=== PATIENT | male | born 1970 | race Caucasian/White ===

== ENCOUNTER 2022-07-10 09:02 | Outpatient (CLI) | payer BC, OTHER, SELFPAY ==
[2022-07-10 18:40] LABS: Basophils Percent Auto 0.6 % (0.2-1.2); Eosinophils Absolute Auto 0.1 K/mm3 (0-0.3); Hematocrit 46.1 % (42.0-52.0); Hemoglobin 15.4 g/dL (14.0-18.0); Immature Granulocyte Absolute 0.03 K/mm3 (0.00-0.031); Immature Granulocyte Percent A 0.6 % (0-0.5); Lymphocytes Absolute Auto 1.42 K/mm3 (0.9-3.2); Lymphocytes Percent Auto 26.3 % (18.3-44.2); Mean Corpuscular HGB Conc 33.4 g/dl (32-36); Mean Corpuscular Hemoglobin 29.8 pg (26-34); Mean Corpuscular Volume 89.3 fl (80-100); Monocytes Absolute Auto 0.6 K/mm3 (0.1-0.6); Monocytes Percent Auto 11.9 % (2.6-8.5); Neutrophils Absolute Auto 3.2 K/mm3 (1.3-6.7); Neutrophils Percent Auto 58.6 % (45.5-73.1); Platelet Count Result 224 k/mm3 (150-375); Red Blood Count 5.16 M/mm3 (4.6-6.20); White Blood Count 5.4 K/mm3 (4.5-10.0)
[2022-07-10 19:56] LABS: LDL Cholesterol Direct 73 mg/dL
[2022-07-10 20:00] LABS: Alanine Aminotransferase 35 U/L (6-50); Albumin Level 4.5 g/dL (3.5-5.1); Alkaline Phosphatase 76 U/L (38-126); Anion Gap 5 mmol/L (8-16); Aspartate Amino Transferase 35 U/L (17-59); Bilirubin,Total 0.8 mg/dL (0.2-1.3); Blood Urea Nitrogen 16 mg/dL (9-20); Carbon Dioxide 31 mmol/L (22-30); Chloride 103 mmol/L (98-107); Cholesterol 156 mg/dL (0-200); Estimated Glomerular Filt Rate > 60; Glucose 104 mg/dL (65-110); HDL Direct 45 mg/dL; Potassium 4.7 mmol/L (3.4-5.0); Sodium 139 mmol/L (137-145); Triglycerides 120 mg/dL (<150)
[2022-07-10 20:10] LABS: Prostate Specific Antigen 3.1 ng/mL (< OR = 4.0)
== END 2022-07-10 09:03 | disposition home or self-care (01) ==
LOC: ANHGOSHLAB 09:05
PROVIDERS: PCP Family Medicine; Visit Provider Nurse Practitioner
DX: I10 Essential (primary) hypertension (principal); E78.5 Hyperlipidemia, unspecified; Z12.5 Encounter for screening for malignant neoplasm of prostate
CPT/HCPCS: 36415; 80053; 80061; 84153; 85025; G0103

== ENCOUNTER 2022-12-04 01:33 | Day surgery (SDC) | payer BC, OTHER, SELFPAY ==
[2022-11-23 10:52] VITALS: BMI 27.9
[2022-12-04 06:21] VITALS: BMI 28.0
[2022-12-04 06:23] VITALS: BP 99/78; PULSE 76; RESP 18; TEMP 36.2; O2SAT 100
[2022-12-04] MEDS: LACTATED RINGERS 1,000 ML 150 ML IV CONT (06:30)
--- NOTE | 2022-12-04 07:20 | WPDANESEPPF ---
Anes - Initial Pre Proc Eval Procedure: Operation Date: 12/04/22 07:30 Proposed Procedures p Screening Colonoscopy - Flaquito Martinez MD Date/Time: 12/04/22 07:20 Surgeon: Flaquito Martinez MD Pre Op Diagnosis: neoplasm screening Patient Data Age: 52 Gender: M Height: 1.85 m Weight: 96.6 kg Last Vital Signs Temp 97.1 F L 12/04/22 06:23 Pulse 76 12/04/22 06:23 Resp 18 12/04/22 06:23 BP 99/78 L 12/04/22 06:23 Pulse Ox 100 12/04/22 06:23 Allergies Allergy/AdvReac Type Severity Reaction Status Date / Time No Known Drug Allergies AdvReac Unknown Unknown Verified 07/10/22 07:56 Home Medications Medication Instructions Recorded Confirmed Type acyclovir 400 mg tablet 400 mg PO TID #30 tabs 06/19/22 11/23/22 Rx losartan 25 mg tablet 25 mg PO DAILY #90 tabs 10/09/22 11/23/22 Rx rosuvastatin 10 mg tablet 10 mg PO DAILY #90 tabs 10/09/22 11/23/22 Rx Patient hx anesthesia problems: none Family hx anesthesia problems: none Results Review: All pre-operative results and documents have been reviewed as part of the pre-operative evaluation. [facility] Past Medical History Medical History H/O herpes simplex infection Hypertension Other and unspecified hyperlipidemia Surgical History Surgical History H/O arthroscopy of right knee (~1983) Family History Family History Grandparent Family history of gout Social History Social History Smoking status: Never smoker Second hand tobacco smoke exposure: No Alcohol intake: current Drinks per week: 4 Alcohol use details: socially Substance use type: does not use Lack of Transportation: No Lack of Food: Never True Current Housing: I Have Housing Concerned About Future Housing: No Difficulty Paying Gas/Electric Bills: No Difficulty Paying for Meds: No Currently Unemployed: No Education: Master's Degree or Higher Difficulty w/ Childcare or Family Care: No Living arrangements: with family Spiritual care concerns: No Anes - Eval Final PreProcedure Day of Procedure 12/04/22 07:20 Patient weight: normal Heart: regular rate and rhythm Lungs: clear to auscultation Airway: Mallampati scale class II Neurological: alert and oriented Last oral intake: >/= 8 hours ASA classification: II Emergent: no Anesthetic plan: proceed Anesthesia type and monitoring: general GIVS and standard monitoring Results Review: All pre-operative results and documents have been reviewed as part of the pre-operative evaluation. Informed Consent: The patient's anesthetic plan and its attendant risks and benefits were discussed with the patient/family/POA. Questions were solicited and answers provided to the satisfaction of the patient/family/POA.
--- NOTE | 2022-12-04 07:31 | PM.HPGS ---
History of Present Illness History of Present Illness Consent: Risks, benefits, and alternatives have been discussed and questions answered. Patient agrees to proceed with procedure. Chief complaint: neoplasm screening Narrative: Evans King is a 52 year old male here for first screening colonoscopy Review of Systems Constitutional: Constitutional: Denies headache(s) and Denies weakness Eyes: Eyes: Denies blurry vision ENT: Reports Normal hearing present, Denies headache(s) and Denies neck pain Cardiovascular: Cardiovascular: Denies chest pain and Denies dyspnea Respiratory: Respiratory: Denies dyspnea Gastrointestinal: Gastrointestinal: Reports no additional gastrointestinal complaints Genitourinary: Genitourinary: Denies dysuria Musculoskeletal: Musculoskeletal: Denies neck pain Integumentary/Breasts: Skin/Breast: Denies dry skin Neurologic: Reports Normal hearing present, Denies headache(s) and Denies weakness Psychiatric: Psychiatric: Denies anxiety Endocrine: Endocrine: Denies change in body appearance Hematologic/Lymphatic: Hematologic/Lymphatic: Denies easy bleeding Allergic/Immunologic: Allergic/Immunologic: Denies urticaria PMF Past Medical History Medical History (Updated 12/04/22 @ 07:32 by Flaquito Martinez MD) Colon cancer screening H/O herpes simplex infection Hypertension Other and unspecified hyperlipidemia Surgical History Surgical History H/O arthroscopy of right knee (~1983) Family History Family History Grandparent Family history of gout Social History Social History Smoking status: Never smoker Second hand tobacco smoke exposure: No Alcohol intake: current Drinks per week: 4 Alcohol use details: socially Substance use type: does not use Lack of Transportation: No Lack of Food: Never True Current Housing: I Have Housing Concerned About Future Housing: No Difficulty Paying Gas/Electric Bills: No Difficulty Paying for Meds: No Currently Unemployed: No Education: Master's Degree or Higher Difficulty w/ Childcare or Family Care: No Living arrangements: with family Spiritual care concerns: No Meds Home Medications and Allergies Home Medications Medication Instructions Recorded Confirmed Type acyclovir 400 mg tablet 400 mg PO TID #30 tabs 06/19/22 11/23/22 Rx losartan 25 mg tablet 25 mg PO DAILY #90 tabs 10/09/22 11/23/22 Rx rosuvastatin 10 mg tablet 10 mg PO DAILY #90 tabs 10/09/22 11/23/22 Rx Allergies Allergy/AdvReac Type Severity Reaction Status Date / Time No Known Drug Allergies AdvReac Unknown Unknown Verified 07/10/22 07:56 Vital Signs Vital Signs - 24 hr 12/04/22 06:23 Temperature 97.1 F L Pulse Rate 76 Respiratory Rate 18 Blood Pressure 99/78 L Pulse Oximetry 100 Exam Const: General: comfortable and no acute distress HENMT: Face/Nose/Sinus: Normal nares present Eyes: General: appearance normal, both eyes and all related structures Neck: Neck: no JVD Resp: Auscultation: clear to auscultation bilaterally Cardio: Rate: regular rate Rhythm: regular rhythm GI: Inspection: non-distended GI Palp: Yes Soft to palpation Skin: General skin exam: normal color Neuro: General: gait normal Speech: normal speech Extrem: General: normal to inspection Psych: Mental Status: mental status grossly normal Assessment and Plan Assessment and plan (1) Colon cancer screening: Code(s): Z12.11 - Encounter for screening for malignant neoplasm of colon Status: Acute Assessment and Plan: colonoscopy
[2022-12-04 07:48] VITALS: BP 112/66; PULSE 70; RESP 18; O2SAT 96
[2022-12-04 07:58] VITALS: BP 104/72; PULSE 68; RESP 18; O2SAT 96
[2022-12-04 08:07] VITALS: BP 111/69; PULSE 63; RESP 18; O2SAT 95
== END 2022-12-04 08:09 | disposition home or self-care (01) ==
PROVIDERS: PCP Family Medicine; Visit Provider Internal Medicine Gastroenterology
PROC: 0DJD8ZZ Inspection of Lower Intestinal Tract, Via Natural or Artificial Opening Endoscopic (ICD-10-PCS; CPT 45378; principal; 2022-12-04 07:30)
DX: Z12.11 Encounter for screening for malignant neoplasm of colon (principal); K57.30 Diverticulosis of large intestine without perforation or abscess without bleeding; B00.9 Herpesviral infection, unspecified; I10 Essential (primary) hypertension; E78.49 Other hyperlipidemia
CPT/HCPCS: 45378; J2704; J7120

== ENCOUNTER 2023-06-25 09:46 | Outpatient (CLI) | payer BC, OTHER, SELFPAY ==
[2023-06-25 13:44] LABS: Basophils Percent Auto 0.7 % (0.2-1.2); Eosinophils Absolute Auto 0.1 K/mm3 (0-0.3); Hematocrit 45.1 % (42.0-52.0); Hemoglobin 15.1 g/dL (14.0-18.0); Immature Granulocyte Absolute 0.02 K/mm3 (0.00-0.031); Immature Granulocyte Percent A 0.3 % (0-0.5); Lymphocytes Absolute Auto 1.37 K/mm3 (0.9-3.2); Lymphocytes Percent Auto 23.1 % (18.3-44.2); Mean Corpuscular HGB Conc 33.5 g/dl (32-36); Mean Corpuscular Hemoglobin 30.1 pg (26-34); Mean Corpuscular Volume 89.8 fl (80-100); Mean Platelet Volume 10.4 fl (7.4-10.4); Monocytes Absolute Auto 0.5 K/mm3 (0.1-0.6); Monocytes Percent Auto 9.1 % (2.6-8.5); Neutrophils Absolute Auto 3.8 K/mm3 (1.3-6.7); Neutrophils Percent Auto 64.8 % (45.5-73.1); Platelet Count Result 202 k/mm3 (150-375); Red Blood Count 5.02 M/mm3 (4.6-6.20); Red Cell Distribution Width 12.9 % (11.5-14.5); White Blood Count 5.9 K/mm3 (4.5-10.0)
[2023-06-25 14:15] LABS: Alanine Aminotransferase 51 U/L (6-50); Albumin Level 4.4 g/dL (3.5-5.1); Alkaline Phosphatase 78 U/L (38-126); Anion Gap 7 mmol/L (8-16); Aspartate Amino Transferase 53 U/L (17-59); Bilirubin,Total 0.6 mg/dL (0.2-1.3); Blood Urea Nitrogen 18 mg/dL (9-20); Calcium 9.4 mg/dL (8.4-10.2); Carbon Dioxide 28 mmol/L (22-30); Chloride 107 mmol/L (98-107); Cholesterol 177 mg/dL (0-200); Estimated Glomerular Filt Rate > 60; Glucose 99 mg/dL (65-110); HDL Direct 47 mg/dL; Potassium 4.4 mmol/L (3.4-5.0); Sodium 142 mmol/L (137-145); Triglycerides 160 mg/dL (<150)
[2023-06-25 14:26] LABS: LDL Cholesterol Direct 94 mg/dL
[2023-06-27 14:24] LABS: PSA, Free 0.35 ng/mL; PSA, Total 1.4 ng/mL (<=4.0)
[2023-06-28 12:19] LABS: Vitamin D 1,25 (OH)2 Total 95 pg/mL (18-72); Vitamin D2 1,25 (OH)2 <8 pg/mL; Vitamin D3 1,25 (OH)2 95 pg/mL
== END 2023-06-25 09:47 | disposition home or self-care (01) ==
LOC: ANHGOSHLAB 09:47
PROVIDERS: PCP Family Medicine; Visit Provider Nurse Practitioner Family
DX: E55.9 Vitamin D deficiency, unspecified (principal); I10 Essential (primary) hypertension; Z12.5 Encounter for screening for malignant neoplasm of prostate; Z00.00 Encounter for general adult medical examination without abnormal findings
CPT/HCPCS: 36415; 80053; 80061; 82652; 84153; 84154; 84443; 85025

== ENCOUNTER 2023-07-22 08:31 | Emergency (ER) | payer BC, OTHER, SELFPAY ==
--- NOTE | ~2023-07-22 | CT_ITS ---
EXAMINATION: CT abdomen pelvis wo con DATE: 07/22/2023 09:19 INDICATION: Left flank pain. TECHNIQUE: Computed tomography (CT) of the abdomen and pelvis was performed without intravenous contr ast. Automated exposure control and iterative reconstruction technique were employed. The dose-length product was 911.78 mGy-cm. COMPARISON: None. FINDINGS: The visualized portions of the lung bases demonstrate mild atelectasis. No pleural effusion . The heart size is normal. No pericardial effusion. There are cysts in the liver measuring up to 19 mm. The gallbladder, spleen, pancreas, adrenal glands, and right kidney are normal. There is a 2 mm s tone in left kidney. There is mild left hydronephrosis and hydroureter. There is a 5 mm stone at left ureterovesicular junction. The prostate is mildly enlarged. There is diverticulosis of the colon wit hout evidence of diverticulitis. The appendix is normal. There are no dilated loops of bowel. There a re no pathologically enlarged lymph nodes. There is no free intraperitoneal fluid. There is mild lumb ar spondylosis. There is mild chronic anterior wedging of multiple vertebral bodies. There are bridgi ng endplate osteophytes at multiple levels in the thoracic spine, consistent with diffuse idiopathic skeletal hyperostosis (DISH). IMPRESSION: 1. 5 mm stone at left ureterovesicular junction with mild left hydronephrosis and hydroureter. 2. Nonobstructing 2 mm left kidney stone. Reviewed, dictated and finalized at location A. DEALER IMPRESSION: 1. 5 mm stone at left ureterovesicular junction with mild left hydronephrosis a nd hydroureter. 2. Nonobstructing 2 mm left kidney stone.
--- NOTE | 2023-07-22 08:37 | ED.BACK ---
HPI - Back Pain/Injury General Chief Complaint: Back Pain/Injury Stated Complaint: BACK PAIN TODAY Time Seen by Provider: 07/22/23 08:34 History of Present Illness HPI Narrative: Patient is a 53-year-old male who presents ER with sudden onset left flank pain. It occurred while walking his dog. Radiated down into the left lower quadrant. Associated with diaphoresis and nausea. Reports pressure like he needs to urinate. No history of kidney stones previously. No alleviating factors. No aggravating factors. Related Data Allergies Allergy/AdvReac Type Severity Reaction Status Date / Time No Known Drug Allergies AdvReac Unknown Unknown Verified 07/22/23 08:32 Review of Systems Constitutional: Constitutional: Reports no additional constitutional complaints ENT: Reports system reviewed and no additional complaints, except as documented Cardiovascular: Cardiovascular: Reports no additional cardiovascular complaints Respiratory: Respiratory: Reports no additional respiratory complaints Gastrointestinal: Gastrointestinal: Denies diarrhea, Reports nausea and Denies vomiting Genitourinary: Genitourinary: Denies dysuria, Denies urinary frequency and Denies urinary incontinence PMF Past Medical History Medical History Colon cancer screening H/O herpes simplex infection Hypertension Other and unspecified hyperlipidemia Surgical History Surgical History H/O arthroscopy of right knee (~1983) Family History Family History Grandparent Family history of gout Social History Social History Smoking status: Never smoker Second hand tobacco smoke exposure: No Alcohol intake: current Drinks per week: 4 Alcohol use details: socially Substance use type: does not use Lack of Transportation: No Lack of Food: Never True Current Housing: I Have Housing Concerned About Future Housing: No Difficulty Paying Gas/Electric Bills: No Difficulty Paying for Meds: No Currently Unemployed: No Education: Master's Degree or Higher Difficulty w/ Childcare or Family Care: No Living arrangements: with family Spiritual care concerns: No Exam Narrative: GENERAL: Well-appearing, well-nourished, and in no acute distress. HEAD: Normocephalic, atraumatic. ENT: Mucous membranes moist. CHEST: Clear to auscultation. No respiratory distress. HEART: Regular rate and rhythm. Normal peripheral pulses. ABDOMEN: Soft, nontender, nondistended. EXTREMITIES: Normal range of motion. No edema. SKIN: Warm, dry, no rash. NEURO: Alert and oriented x3. PSYCH: Normal mood and affect. Course Course Emergency Course: Patient informed of results. Discussed 5 mm stone at the UVJ. Patient has received fluids as well as Zofran Toradol. Should pass on his own. Will send home with a strainer. Flomax here. Supportive care for home. Vital Signs Vital signs: Vital Signs Temperature 97.6 F 07/22/23 08:39 Pulse Rate 69 07/22/23 08:39 Respiratory Rate 18 07/22/23 08:39 Blood Pressure 146/101 H 07/22/23 08:39 Pulse Oximetry 99 07/22/23 08:39 Oxygen Delivery Room Air 07/22/23 08:39 Temperature 97.6 F 07/22/23 08:39 Pulse Rate 69 07/22/23 08:39 Respiratory Rate 18 07/22/23 08:39 Blood Pressure 146/101 H 07/22/23 08:39 Pulse Oximetry 99 07/22/23 08:39 Oxygen Delivery Room Air 07/22/23 08:39 MDM - Back Pain/Injury Lab Data Labs: Lab Results 07/22/23 Range/Units 08:59 Urine Color Yellow (Yellow) Urine Appearance Clear (Clear) Urine pH 5.0 (5.0-9.0) Ur Specific [place] 1.026 (1.001-1.035) Urine Protein Negative (Negative) mg/dL Urine Glucose (UA) Negative (Negative) mg/dL Urine Ketones Negative (Negative)
[2023-07-22 08:39] VITALS: BP 146/101; PULSE 69; RESP 18; TEMP 36.4; O2SAT 99
[2023-07-22] MEDS: SODIUM CHLORIDE 0.9% IV 1,000 ML 999 ML IV CONT (08:56)
[2023-07-22] MEDS: KETOROLAC 15 MG/ML VIAL (*BKC) IV PUSH (08:56)
[2023-07-22 09:11] LABS: Appearance Urine Clear (Clear); Bacteria Urine None Seen /hpf; Bilirubin Urine Negative (Negative); Blood Urine 3+ (Negative); Color Urine Yellow (Yellow); Glucose Urine UA Negative (Negative); Ketones Urine Negative (Negative); Leukocyte Esterase Ur Negative LEU/UL (Negative); Nitrate Urine Negative (Negative); Non Pathogenic Casts 0-2; Protein Urine Negative (Negative); RBC Urine 51-100 /hpf (0-2); Specific Grav Ur 1.026 (1.001-1.035); Squamous Epithelial Cell Urine None seen /hpf (Few); Urobilinogen Urine 0.2 mg/dL (<2.0); WBC Urine 0-5 /hpf
[2023-07-22 09:14] LABS: Add Urine Microscopic? YES
[2023-07-22 09:45] VITALS: BP 145/98; PULSE 80; RESP 20; O2SAT 98
[2023-07-22] MEDS: TAMSULOSIN HCL 0.4 MG CAPSULE PO (09:47)
== END 2023-07-22 10:07 | disposition home or self-care (01) ==
PROVIDERS: Emergency Provider Emergency Medicine; PCP Family Medicine
DX: N13.2 Hydronephrosis with renal and ureteral calculous obstruction (principal); I10 Essential (primary) hypertension; E78.5 Hyperlipidemia, unspecified
CPT/HCPCS: 74176; 81001; 96361; 96374; 99284; A9270; J1885; J7030

== ENCOUNTER 2024-06-11 17:40 | Emergency (ER) | payer BC, OTHER, SELFPAY ==
--- NOTE | ~2024-06-11 | CT_ITS ---
CLINICAL INDICATION: Right flank pain. COMPARISON: 07/22/2023. TECHNIQUE: Multiple contiguous axial images of the abdomen and pelvis were performed following the ad ministration of with 100 mL Omnipaque-350 intravenous contrast The dose-length product (DLP) was 539.19 mGy-cm. Automated exposure control and iterative reconstruction technique were employed. FINDINGS/OBSERVATIONS: Visualized lower thorax: The bilateral lung bases are clear. The heart is of normal size, without pericardial effusion. Small hiatal hernia is present. Liver: Innumerable subcentimeter foci of decreased attenuation within the liver, unchanged from 07/22/2023. Th e remainder of the liver enhances homogeneously, without enlargement measuring 18 cm in longitudinal dimension. Gallbladder and biliary system: The gallbladder is only minimally distended, and otherwise unremarkable. Pancreas: The pancreas enhances homogeneously without ductal dilatation. Spleen: The spleen enhances homogeneously and is not enlarged measuring 4 cm in longitudinal dimension. Kidneys: Redemonstration of a 3 mm calculus within the interpolar region of the left kidney, unchange d from prior. The bilateral kidneys enhance symmetrically without hydronephrosis or renal calculi. Adrenal glands: Unremarkable. Gastrointestinal tract: Fecal stasis within the colon. Colonic diverticulosis without surrounding inflammatory change. Appendix: The air-filled appendix is of normal caliber (axial series, images 99 - 111). Vasculature: Unremarkable. Lymph nodes: Scattered nonpathologically enlarged lymph nodes within the retroperitoneum and at the root of the me sentery, a nonspecific finding. Pelvic structures: The bladder is only minimally distended, and otherwise unremarkable. The prostate gland is not enlarged, and contains multiple bulky calcifications. Body wall and musculoskeletal: Redemonstration of a small fat-containing right inguinal hernia. No significant degenerative disease within the lower thoracic or lumbosacral spine. IMPRESSION: No obstructive uropathy. Normal appendix. Fat-containing right inguinal hernia, unchanged from 07/22/2023. Reviewed, dictated and finalized at location A. LE INST[employer]ATION HELPER
[2024-06-11 17:45] VITALS: BP 149/80; PULSE 66; RESP 16; TEMP 36.2; O2SAT 100
[2024-06-11 18:03] VITALS: BP 132/93; PULSE 64; RESP 14; O2SAT 100
[2024-06-11 18:12] LABS: Basophils Percent Auto 0.5 % (0.2-1.2); Eosinophils Absolute Auto 0.2 K/mm3 (0-0.3); Eosinophils Percent Auto 2.4 % (0-4.4); Hematocrit 46.2 % (42.0-52.0); Hemoglobin 15.7 g/dL (14.0-18.0); Immature Granulocyte Absolute 0.02 K/mm3 (0.00-0.031); Immature Granulocyte Percent A 0.3 % (0-0.5); Lymphocytes Absolute Auto 1.59 K/mm3 (0.9-3.2); Lymphocytes Percent Auto 24.1 % (18.3-44.2); Mean Corpuscular Hemoglobin 30.1 pg (26-34); Mean Corpuscular Volume 88.5 fl (80-100); Mean Platelet Volume 9.6 fl (7.4-10.4); Monocytes Absolute Auto 0.7 K/mm3 (0.1-0.6); Monocytes Percent Auto 9.9 % (2.6-8.5); Neutrophils Absolute Auto 4.1 K/mm3 (1.3-6.7); Neutrophils Percent Auto 62.8 % (45.5-73.1); Platelet Count Result 201 k/mm3 (150-375); Red Blood Count 5.22 M/mm3 (4.6-6.20); Red Cell Distribution Width 12.8 % (11.5-14.5); White Blood Count 6.6 K/mm3 (4.5-10.0)
[2024-06-11 18:21] LABS: Add Urine Microscopic? NO; Appearance Urine Clear (Clear); Bilirubin Urine Negative (Negative); Blood Urine Negative (Negative); Color Urine Yellow (Yellow); Glucose Urine UA Negative (Negative); Ketones Urine Negative (Negative); Leukocyte Esterase Ur Negative LEU/UL (Negative); Nitrate Urine Negative (Negative); Protein Urine Negative (Negative); Specific Grav Ur 1.018 (1.001-1.035)
--- NOTE | 2024-06-11 18:34 | ED_ITS ---
HPI - Abdominal Pain General Chief Complaint: Abdominal Pain Stated Complaint: Right side pain x 4 days-no known injury Time Seen by Provider: 06/11/24 17:51 Source: patient Mode of arrival: ambulatory Limitations: no limitations History of Present Illness HPI narrative: This is a 54 year old male that presents to the ER for right sided abdominal pain. Ongoing over the last couple of days. Reports the pain has been worsening. No known alleviating or exacerbating factors. He has had kidney stones before. Denies fevers, cough, vomiting, diarrhea, dysuria. Related Data Allergies Allergy/AdvReac Type Severity Reaction Status Date / Time No Known Drug Allergies AdvReac Unknown Unknown Verified 06/11/24 17:42 Review of Systems 2 Review of Systems: CONSTITUTIONAL: Denies fever CARDIOVASCULAR: Reports right sided chest pain GASTROINTESTINAL: Reports abdominal pain. Denies nausea, vomiting, or diarrhea. GENITOURINARY: Denies dysuria or hematuria. All systems reviewed & are unremarkable except as noted in HPI and below PMFSH Past Medical History Medical History Colon cancer screening H/O herpes simplex infection Hypertension Other and unspecified hyperlipidemia Surgical History Surgical History H/O arthroscopy of right knee (~1983) Family History Family History Grandparent Family history of gout Social History Social History Smoking status: Never smoker Second hand tobacco smoke exposure: No Alcohol intake: current Drinks per week: 4 Alcohol use details: socially Substance use type: does not use Lack of Transportation: No Lack of Food: Never True Current Housing: I Have Housing Concerned About Future Housing: No Difficulty Paying Gas/Electric Bills: No Difficulty Paying for Meds: No Currently Unemployed: No Education: Master's Degree or Higher Difficulty w/ Childcare or Family Care: No Living arrangements: with family Spiritual care concerns: No Exam 2 Narrative: GENERAL: Well-appearing, well-nourished, and in no acute distress. HEAD: Normocephalic, atraumatic. EYES: EOMI. CHEST: Clear to auscultation. No respiratory distress. No wheezes rales or rhonchi HEART: Regular rate and rhythm. No murmur heard. Normal peripheral pulses. ABDOMEN: Soft, nontender, nondistended, normal active bowel sounds. EXTREMITIES: Normal range of motion. No edema. SKIN: Warm, dry, no rash. NEURO: No focal deficits. Alert and oriented x3. PSYCH: Normal mood and affect Course Course Emergency Course: patient updated on his workup and agrees with plan of care Vital Signs Vital signs: Vital Signs Temperature 97.2 F L 06/11/24 17:45 Pulse Rate 66 06/11/24 17:45 Respiratory Rate 16 06/11/24 17:45 Blood Pressure 149/80 H 06/11/24 17:45 Pulse Oximetry 100 06/11/24 17:45 Oxygen Delivery Room Air 06/11/24 17:45 Temperature 97.2 F L 06/11/24 17:45 Pulse Rate 64 06/11/24 18:03 Respiratory Rate 14 06/11/24 18:03 Blood Pressure 132/93 H 06/11/24 18:03 Pulse Oximetry 100 06/11/24 18:03 Oxygen Delivery Room Air 06/11/24 17:45 MDM - Abdominal Pain MDM Narrative Medical decision making narrative: Patient presents to the emergency department for right upper quadrant abdominal pain. He is afebrile and nontoxic appearing. His vitals are stable. Cbc without leukocytosis. Metabolic panel and lipase without concerning findings. Urine without evidence of infection. CT abdomen pelvis is without acute findings. Patient updated on his workup and agrees with plan of care. He is to follow up with primary provider. He was given warnings to return to the ER Differential Diagnosis Differential diagnosis: Likely calculus of kidney and other (biliary colic, pneumonia, muscle strain) Lab Data Attestation: I reviewed the patient's lab results. 06/11/24 18:06 06/11/24 19:11 Labs: Lab Results 06/11/24 06/11/24 06/11/24 Range/Units 18:06 18:14 19:11 WBC 6.6 (4.5-10.0) K/mm3 RBC 5.22 (4.6-6.20) M/mm3 Hgb 15.7 (14.0-18.0) g/dL Hct 46.2 (42.0-52.0) % MCV 88.5 (80-100) fl MCH 30.1 (26-34) pg MCHC 34.0 (32-36) g/dl RDW 12.8 (11.5-14.5) % Plt Count 201 (150-375) k/mm3 MPV 9.6 (7.4-10.4) fl Immature Gran % (Auto) 0.3 (0-0.5) % Neut % (Auto) 62.8 (45.5-73.1) % Lymph % (Auto) 24.1 (18.3-44.2) % [place] % (Auto) 9.9 H (2.6-8.5) % Eos % (Auto) 2.4 (0-4.4) % Baso % (Auto) 0.5 (0.2-1.2) % Lymph # (Auto) 1.59 (0.9-3.2) K/mm3 [place] # (Auto) 0.7 H (0.1-0.6) K/mm3 Eos # (Auto) 0.2 (0-0.3) K/mm3 Baso # (Auto) 0.0 (0.0-0.1) K/mm3 Abs Immat Gran (auto) 0.02 (0.00-0.031) K/mm3 Absolute Neuts (auto) 4.1 (1.3-6.7) K/mm3 Absolute Nucleated RBC 0.000 (0.0-0.012) K/mm3 Nucleated RBC % 0.0 (0.0-0.2) % Sodium 140 (137-145) mmol/L Potassium 3.8 (3.4-5.0) mmol/L Chloride 104 (98-107) mmol/L Carbon Dioxide 27 (22-30) mmol/L Anion Gap 9 (4-12) mmol/L BUN 14 (9-20) mg/dL Creatinine 0.87 (0.7-1.3) mg/dL Estim Creat Clear Calc 98 ml/min Estimated GFR > 60 (59 - ) Glucose 92 (65-110) mg/dL Calcium 9.2 (8.4-10.2) mg/dL Total Bilirubin 0.7 (0.2-1.3) mg/dL AST 27 (17-59) U/L ALT 42 (6-50) U/L Alkaline Phosphatase 65 (38-126) U/L Total Protein 8.0 (6.3-8.2) g/dL Albumin 4.7 (3.5-5.1) g/dL Lipase 94 (23-300) U/L Urine Color Yellow (Yellow) Urine Appearance Clear (Clear) Urine pH 7.0 (5.0-9.0) Ur Specific [place] 1.018 (1.001-1.035) Urine Protein Negative (Negative) mg/dL Urine Glucose (UA) Negative (Negative) mg/dL Urine Ketones Negative (Negative) mg/dL Ur Blood (Man) Negative (Negative) Urine Nitrate Negative (Negative) Urine Bilirubin Negative (Negative) Urine Urobilinogen 1.0 (<2.0) mg/dL Leukocyte Esterase Rfl Negative (Negative) DEVANG/UL Imaging Data Radiologist's impression: ITS Impressions Abdomen/Pelvis CT 06/11/24 20:07 IMPRESSION: No obstructive uropathy. Normal appendix. Fat-containing right inguinal hernia, unchanged from 07/22/2023. Critical Care Time Critical Care Time Critical Care Time: No Discharge Plan Discharge Clinical Impression: Right upper quadrant abdominal pain Patient Disposition: Home, Self-Care Condition: Stable Instructions: Abdominal Pain (ED) Additional Instructions: Return to the ER if you experience fever, chest pain, shortness of breath, abdominal pain with nausea and vomiting, you are unable to keep down liquids or solids, or any other symptoms that are concerning to you Your blood work and imaging were reassuring Follow up with your primary care doctor Patient Language: Italian Prescriptions: No Action hydrocodone-acetaminophen 5-325 mg tablet 1 tablet PO Q6H PRN (Reason: pain) Qty: 10 0RF tamsulosin 0.4 mg capsule 0.4 mg PO DAILY Qty: 5 0RF ondansetron 4 mg tablet,disintegrating 4 mg PO Q6H PRN (Reason: nausea and vomiting) Qty: 5 0RF losartan 25 mg tablet 25 mg PO DAILY Qty: 90 1RF rosuvastatin 10 mg tablet 10 mg PO DAILY Qty: 90 1RF Follow-up/Referrals: Jareth Zamudio MD [Primary Care Provider] -
[2024-06-11 19:29] LABS: Alanine Aminotransferase 42 U/L (6-50); Albumin Level 4.7 g/dL (3.5-5.1); Alkaline Phosphatase 65 U/L (38-126); Anion Gap 9 mmol/L (4-12); Aspartate Amino Transferase 27 U/L (17-59); Bilirubin,Total 0.7 mg/dL (0.2-1.3); Blood Urea Nitrogen 14 mg/dL (9-20); Calcium 9.2 mg/dL (8.4-10.2); Carbon Dioxide 27 mmol/L (22-30); Chloride 104 mmol/L (98-107); Estimated CRCL calculation 98 ml/min; Estimated Glomerular Filt Rate > 60; Glucose 92 mg/dL (65-110); Lipase 94 U/L (23-300); Potassium 3.8 mmol/L (3.4-5.0); Sodium 140 mmol/L (137-145)
[2024-06-11 21:31] VITALS: BP 128/80; PULSE 65; RESP 15; O2SAT 100
--- OUTSIDE RECORDS SUMMARY | 2024-06-13 03:27 | XMS_ITS | Referral Summary ---
Author Organization [address] Address [address] [place] [id number] Care Team Providers Care Reimbursement Spec Name Role Phone Unknown, Notinfile Primary Care Provider Unavail able Encounters Date Type Department Care Team Description 06/11/2024 5:00 PM STICKER ON Office Visit [facility] [address] [id number] Devora Robins NP Rib pain on right side (Primary Dx) from Last 3 Months Allergies No known active allergies Medications losartan (COZAAR) 25 mg tablet 06/11/2020 Active rosuvastatin (CRESTOR) 10 mg tablet 06/11/2020 Active Active Problems No known active problems Social History Tobacco Use Types Packs/Day Years Used Date Smoking Tobacco: Never Assessed Sex and Gender Information Value Date Recorded Sex Assigned at Not on file Legal Sex Male 3:29 PM STICKER ON Gender Identity Male 06/11/2024 3:40 PM STICKER ON Sexual Orientation Not on file Last Filed Vital Signs Vital Sign Reading Time Taken Comments Blood Pressure 138/86 06/11/2024 5:01 PM STICKER ON Pulse 68 06/11/2024 5:01 PM STICKER ON Temperature 36.4 ??C (97.6 ??F) 06/11/2024 5:01 PM CS T Respiratory Rate 20 06/11/2024 5:01 PM STICKER ON Oxygen Saturation 99% 06/11/2024 5:01 PM STICKER ON Inhaled Oxygen Concentration - - Weight 90.7 kg (200 lb) 06/11/2024 5:01 PM STICKER ON Height - - Body Mass Index - - Plan of Treatment Not on file Insurance [facility] Address: [address] [address] [place] [address] Care Teams Reimbursement Spec Relationship Specialty Start Date End Date Unknown, Notinfluzmaria PCP - General 06/11/24
--- OUTSIDE RECORDS SUMMARY | 2024-06-13 03:27 | XMS_ITS | Clinical Summary ---
Author Organization [address] Address [address] [place] [phone] Care Team Providers Care Water Pollution Control Inspector Name Role Phone Unknown, Notinfile Primary Care Provider Unavail able Allergies No known active allergies Medications losartan (COZAAR) 25 mg tablet 06/11/2020 Active rosuvastatin (CRESTOR) 10 mg tablet 06/11/2020 Active Active Problems No known active problems Encounters Date Type Department Care Team Description 06/11/2024 5:00 PM TENSION MACHINE OPERATOR Office Visit [facility] Medical [facility] Convenient Care at [address] [phone] Devora Robins NP Rib pain on right side (Primary Dx) from Last 3 Months Social History Tobacco Use Types Packs/Day Years Used Date Smoking Tobacco: Never Assessed Sex and Gender Information Value Date Recorded Sex Assigned at Not on file Legal Sex Male 3:29 PM TENSION MACHINE OPERATOR Gender Identity Male 06/11/2024 3:40 PM TENSION MACHINE OPERATOR Sexual Orientation Not on file Obstetrics History Last Filed Vital Signs Vital Sign Reading Time Taken Comments Blood Pressure 138/86 06/11/2024 5:01 PM TENSION MACHINE OPERATOR Pulse 68 06/11/2024 5:01 PM TENSION MACHINE OPERATOR Temperature 36.4 ??C (97.6 ??F) 06/11/2024 5:01 PM CS T Respiratory Rate 20 06/11/2024 5:01 PM TENSION MACHINE OPERATOR Oxygen Saturation 99% 06/11/2024 5:01 PM TENSION MACHINE OPERATOR Inhaled Oxygen Concentration - - Weight 90.7 kg (200 lb) 06/11/2024 5:01 PM TENSION MACHINE OPERATOR Height - - Body Mass Index - - Plan of Treatment Health Maintenance Due Date Last Done Comments Colon Cancer Screening-Colonoscopy 1972 Depression Screening 1972 Hepatitis C Screening 1972 Prostate Cancer Screening-PSA 1972 DTaP/Tdap/Td Vaccine (1 - Tdap) 1983 Hepatitis B Screening 1990 Regular Well Visit/Exam 18-64 1990 Zoster Vaccine (1 of 2) 2022 Covid-19 Vaccine (4 - 2023-2 5 season) 2024 05/19/2021, 09/03/2020, 08/06/2020 Influenza Vaccine (#1) 2024 Pneumococcal vaccine <65 Aged Out No longer eligible based on patient's age to complete this topic Insurance [facility] Care Teams Water Pollution Control Inspector Relationship Specialty Start Date End Date Unknown, Notinfile PCP - General 06/11/24
--- OUTSIDE RECORDS SUMMARY | 2024-06-13 03:27 | XMS_ITS | Encounter Summary ---
Author Organization [facility] Healthcare Address [address] [place] [id number] Care Team Providers Care Youtuber Name Role Phone Unknown, Notinfile Primary Care Provider Unavail able Reason for Referral * Diagnostic Imaging (Routine) - Authorized Specialty Diagnoses / Procedures Referred By Krysten wong Referred To Contact Diagnoses Rib pain on right side Procedures XR Ribs Right W PA Chest 3 or More Views Devora Robins NP [address] [place] [address] [address] [place] [address] Phone: tel: fax: [facility] Medical Group Referral ID Status Reason Start Date Expiration Date V isits Requested Visits Authorized [id number] Authorized 06/11/2024 07/11/2025 1 1 KLE CHASER Reason for Visit * Reason Comments Abdominal Pain R sided rib pain fee ls tender and feels tight and radiates down abdomen x 5 days Encounter Details Date Type Department Care Team (Late st Contact Info) Description 06/11/2024 5:00 PM WRINKLE CHASER Office Visit [facility] Medical Group Convenient Care at [address] [phone] Devora Robins NP [address] [facility] [address] [place] [address] Rib pain on right side (Primary Dx) Social History Tobacco Use Types Packs/Day Years Used Date Smoking Tobacco: Never Assessed Sex and Gender Information Value Date Recorded Sex Assigned at Not on file Legal Sex Male 3:29 PM WRINKLE CHASER Gender Identity Male 06/11/2024 3:40 PM WRINKLE CHASER Sexual Orientation Not on file documented as of this encounter Last Filed Vital Signs Vital Sign Reading Time Taken Comments Blood Pressure 138/86 06/11/2024 5:01 PM WRINKLE CHASER Pulse 68 06/11/2024 5:01 PM WRINKLE CHASER Temperature 36.4 ??C (97.6 ??F) 06/11/2024 5:01 PM CS T Respiratory Rate 20 06/11/2024 5:01 PM WRINKLE CHASER Oxygen Saturation 99% 06/11/2024 5:01 PM WRINKLE CHASER Inhaled Oxygen Concentration - - Weight 90.7 kg (200 lb) 06/11/2024 5:01 PM WRINKLE CHASER Height - - Body Mass Index - - documented in this encounter Progress Notes * eDvora Robins NP - 06/11/2024 5:00 PM CST Images from the original note were not included. Subjective/Objective Patient ID: Evans King is a 54 y.o. male. Chief Complaint Abdominal Pain (R sided rib pain feels tender and feels tight and radiates down abdomen x 5 days ) Pt presents to [facility] Care for right side pain for the past 5 days. Patient states pain came ongradually but has been constant and has been gradually worsening. Patient is currently rating pain 3/10. Patient does have history of kidney stones in July of 2023. Patient denies any nausea, vomiting, diarrhea, fever. Patient states it does not feel muscular to him. Patient did fall on the ice last week but landed on his left side. Patient states he overall feels well, feels like he could run acouple miles and be okay right now. No pain with deep breath. Pain is aggravated by palpation. Painis relieved with activity. Review of Systems Constitutional: Negative for chills, diaphoresis, fatigue and fever. Respiratory: Negative. Cardiovascular: Negative. Gastrointestinal: Positive for abdominal pain (Patient states the past couple days the pain has abdomen). Negative for constipation, diarrhea, nausea and vomiting. Genitourinary: Negative for dysuria, frequency and hematuria. Musculoskeletal: Negative for arthralgias and myalgias. Right side pain. Neurological: Negative for headaches. All other systems reviewed and are negative. Physical Exam Vitals and nursing note reviewed. Constitutional: General: He is not in acute distress. Appearance: He is well-developed. He is not ill-appearing. Cardiovascular: Rate and Rhythm: Normal rate. Pulses: Normal pulses. Pulmonary: Effort: Pulmonary effort is normal. Abdominal: General: Abdomen is flat. Bowel sounds are normal. There is no distension. Palpations: Abdomen is soft. There is no mass. Tenderness: There is no abdominal tenderness. There is no right CVA tenderness, left CVA tendernessor guarding. Skin: General: Skin is warm and dry. Capillary Refill: Capillary refill takes less than 2 seconds. Findings: No bruising, erythema or rash. Neurological: Mental Status: He is alert and oriented to person, place, and time. Vitals: 06/11/24 1701 BP: 138/86 Pulse: 68 Resp: 20 Temp: 36.4 ??C (97.6 ??F) SpO2: 99% Weight: 90.7 kg (200 lb) No results found. No past medical history on file. There is no problem list on file for this patient. Current Outpatient Medications: losartan (COZAAR) 25 mg tablet, , Disp: , Rfl: rosuvastatin (CRESTOR) 10 mg tablet, , Disp: , Rfl: Not on File Social History Tobacco Use Smoking status: Not on file Smokeless tobacco: Not on file Substance and Sexual Activity Drug use: Not on file Sexual activity: Not on file Alcohol Use: Not on file No past surgical history on file. Assessment/Plan Diagnoses and all orders for this visit: Rib pain on right side (Primary) - XR Ribs Right W PA Chest 3 or More Views; Future - Discussed with patient I recommend further evaluation and follow-up with PCP within the next 2 days. Recommend patient reach out to his PCP 1st thing in the morning for follow-up as he likely will need further evaluation and possible higher level of imaging. - Advised patient we will order rib x-ray and he can return tomorrow between the hours of 8 and 4:30 p.m. to have rib x-ray. - Low threshold to go to ED with any new or worsening symptoms such as increased pain, shortness ofbreath, fever, abdominal pain etc.. Patient states understanding and agrees to plan of care. - May take Tylenol and or ibuprofen as needed for pain per package directions Disposition Treatment plan including expectations, follow up, and return precautions discussed with patient/parent, verbalizes understanding. Medication dosage, use, and potential adverse reactions discussed with patient/parent. Advised to follow up with PCP if symptoms do not resolve as expected or sooner if condition worsens. Signs/symptoms warranting ER evaluation reviewed. Patient and/or guardian was given an opportunity to ask questions, questions answered. Devora Robins NP This office note has been partially dictated using Nugg-it software, and as a result portions of the record may have been created with this software. Occasional wrong-word or '[id number]' substitutions may have occurred due to the inherent limitations of voice recognition software. Read the chartcarefully and recognize, using context, where substitutions have occurred. Cosigned by Gabe Oliver MD at 06/11/2024 10:52 PM WRINKLE CHASER KLE CHASER KLE CHASER KLE CHASER documented in this encounter Plan of Treatment Scheduled Orders Name Type Priority Associated Diagnoses Orde r Schedule XR Ribs Right W PA Chest 3 or More Views Imaging Schedule KRISTINA, Read KRISTINA (Appt Today, Awaiting Results) Rib pain on right side Expected: 06/11/2024, Expires: 06/11/2025 documented as of this encounter Visit Diagnoses Diagnosis Rib pain on right side- Primary documented in this encounter Historical Medications * This list may reflect changes made after this encounter. Medication Sig Dispense Quantity Refills Last Filled Start D ate End Date rosuvastatin (CRESTOR) 10 mg tablet 06/11/2020 losartan (COZAAR) 25 mg tablet 06/11/2020 added in this encounter Care Teams Youtuber Relationship Specialty Start Date End Date Unknown, Notinfile PCP - General 06/11/24 documented as of this encounter
== END 2024-06-11 21:33 | disposition home or self-care (01) ==
PROVIDERS: Emergency Provider Physician Assistant; PCP Emergency Medicine
DX: R10.11 Right upper quadrant pain (principal); I10 Essential (primary) hypertension; E78.5 Hyperlipidemia, unspecified; Z87.442 Personal history of urinary calculi; K40.90 Unilateral inguinal hernia, without obstruction or gangrene, not specified as recurrent
CPT/HCPCS: 36415; 74177; 80053; 81003; 83690; 85025; 99284; Q9967

== ENCOUNTER 2024-06-27 10:05 | Outpatient (CLI) | payer BC, OTHER, SELFPAY ==
--- OUTSIDE RECORDS SUMMARY | 2024-06-27 10:49 | XMS_ITS | Referral Summary ---
Author Organization [address] Address [address] [place] [phone] Care Team Providers Care Senior Project Architect Name Role Phone Unknown, Notinfile Primary Care Provider Unavail able Encounters Date Type Department Care Team Description 06/11/2024 5:00 PM TRANSMITTER TESTER Office Visit [facility] Medical Group Convenient Care at [address] [phone] Devora Robins NP Rib pain [...] on file Legal Sex Male 3:29 PM TRANSMITTER TESTER Gender Identity Male 06/11/2024 3:40 PM TRANSMITTER TESTER Sexual Orientation Not on file Last Filed Vital Signs Vital Sign Reading Time Taken Comments Blood Pressure 138/86 06/11/2024 5:01 PM TRANSMITTER TESTER Pulse 68 06/11/2024 5:01 PM TRANSMITTER TESTER Temperature 36.4 C (97.6 F) 06/11/2024 5:01 PM TRANSMITTER TESTER Respiratory Rate 20 06/11/2024 5:01 PM TRANSMITTER TESTER Oxygen Saturation 99% 06/11/2024 5:01 PM TRANSMITTER TESTER Inhaled Oxygen Concentration - - Weight 90.7 kg (200 lb) 06/11/2024 5:01 PM TRANSMITTER TESTER Height - - Body Mass Index - - Plan of Treatment Not on file Insurance [facility] CHOICE PLUS Care Teams Senior Project Architect Relationship Specialty Start Date End Date Unknown, Notinfile PCP - General 06/11/24
--- OUTSIDE RECORDS SUMMARY | 2024-06-27 10:49 | XMS_ITS | Clinical Summary ---
Author Organization [address] Address [address] [place] [phone] Care Team Providers Care Automotive Service Manager Name Role Phone Unknown, Notinfile Primary Care Provider Unavail able Allergies No known active allergies Medications losartan (COZAAR) 25 mg tablet 06/11/2020 Active rosuvastatin (CRESTOR) 10 mg tablet 06/11/2020 Active Active Problems No known active problems Encounters Date Type Department Care Team Description 06/11/2024 5:00 PM CALL MANAGER Office Visit [facility] Medical Group Convenient Care at [address] [phone] Devora Robins NP Rib pain on right side (Primary Dx) from Last 3 Months Social History Tobacco Use Types Packs/Day Years Used Date Smoking Tobacco: Never Assessed Sex and Gender Information Value Date Recorded Sex Assigned at Not on file Legal Sex Male 3:29 PM CALL MANAGER Gender Identity Male 06/11/2024 3:40 PM CALL MANAGER Sexual Orientation Not on file Obstetrics History Last Filed Vital Signs Vital Sign Reading Time Taken Comments Blood Pressure 138/86 06/11/2024 5:01 PM CALL MANAGER Pulse 68 06/11/2024 5:01 PM CALL MANAGER Temperature 36.4 C (97.6 F) 06/11/2024 5:01 PM CALL MANAGER Respiratory Rate 20 06/11/2024 5:01 PM CALL MANAGER Oxygen Saturation 99% 06/11/2024 5:01 PM CALL MANAGER Inhaled Oxygen Concentration - - Weight 90.7 kg (200 lb) 06/11/2024 5:01 PM CALL MANAGER Height - - Body Mass Index - [...] patient's age to complete this topic Insurance [facility] PL[facility] Care Teams Automotive Service Manager Relationship Specialty Start Date End Date Unknown, Notinfile PCP - General 06/11/24
[2024-06-27 13:56] LABS: Basophils Percent Auto 0.6 % (0.2-1.2); Eosinophils Absolute Auto 0.2 K/mm3 (0-0.3); Eosinophils Percent Auto 2.4 % (0-4.4); Hematocrit 48.6 % (42.0-52.0); Hemoglobin 16.2 g/dL (14.0-18.0); Immature Granulocyte Absolute 0.04 K/mm3 (0.00-0.031); Immature Granulocyte Percent A 0.6 % (0-0.5); Lymphocytes Absolute Auto 1.01 K/mm3 (0.9-3.2); Lymphocytes Percent Auto 14.3 % (18.3-44.2); Mean Corpuscular HGB Conc 33.3 g/dl (32-36); Mean Corpuscular Hemoglobin 29.4 pg (26-34); Mean Corpuscular Volume 88.2 fl (80-100); Mean Platelet Volume 10.1 fl (7.4-10.4); Monocytes Absolute Auto 0.5 K/mm3 (0.1-0.6); Monocytes Percent Auto 7.4 % (2.6-8.5); Neutrophils Absolute Auto 5.3 K/mm3 (1.3-6.7); Neutrophils Percent Auto 74.7 % (45.5-73.1); Platelet Count Result 229 k/mm3 (150-375); Red Blood Count 5.51 M/mm3 (4.6-6.20); Red Cell Distribution Width 12.6 % (11.5-14.5); White Blood Count 7.1 K/mm3 (4.5-10.0)
[2024-06-27 14:33] LABS: Alanine Aminotransferase 53 U/L (6-50); Albumin Level 4.9 g/dL (3.5-5.1); Alkaline Phosphatase 81 U/L (38-126); Anion Gap 11 mmol/L (4-12); Aspartate Amino Transferase 38 U/L (17-59); Bilirubin,Total 0.8 mg/dL (0.2-1.3); Blood Urea Nitrogen 14 mg/dL (9-20); Calcium 9.9 mg/dL (8.4-10.2); Carbon Dioxide 29 mmol/L (22-30); Chloride 102 mmol/L (98-107); Cholesterol 185 mg/dL (0-200); Estimated Glomerular Filt Rate > 60; Glucose 104 mg/dL (65-110); HDL Direct 51 mg/dL; Potassium 4.7 mmol/L (3.4-5.0); Sodium 142 mmol/L (137-145); Triglycerides 102 mg/dL (<150); Uric Acid 6.7 mg/dL (3.5-8.5)
[2024-06-27 14:44] LABS: LDL Cholesterol Direct 112 mg/dL
[2024-06-27 14:52] LABS: Vitamin D 25 Hydroxy 36.2 ng/mL
[2024-06-27 14:59] LABS: Prostate Specific Antigen 2.3 ng/mL (< OR = 4.0)
== END 2024-06-27 10:06 | disposition home or self-care (01) ==
LOC: ANHGOSHLAB 10:05
PROVIDERS: PCP Family Medicine; Visit Provider Nurse Practitioner Family
DX: Z00.00 Encounter for general adult medical examination without abnormal findings (principal); E78.5 Hyperlipidemia, unspecified; I10 Essential (primary) hypertension; E55.9 Vitamin D deficiency, unspecified; M10.9 Gout, unspecified; Z12.5 Encounter for screening for malignant neoplasm of prostate
CPT/HCPCS: 36415; 80053; 80061; 82306; 84153; 84443; 84550; 85025; G0103